=== PATIENT | male | born 1960 | race Hispanic/Latino ===

== ENCOUNTER 2016-11-15 09:40 | Outpatient (CLI) | payer MEDICARE ==
--- NOTE | 2016-11-16 07:41 | RAD ---
LEFT KNEE FOUR VIEWS 11/15/16 Moderate osteoarthritis is present. There is moderate medial joint space narrowing and some small os teophytes. There is the beginnings of a little sclerosis of the articular portions of the bones medi ally, though it is not great. No fracture or large joint effusion was seen. Patellofemoral osteophyt es are present. There may have been an old injury laterally. IMPRESSION: Moderate osteoarthritis. POS: HOME
== END 2016-11-15 09:41 | disposition home or self-care (01) ==
LOC: BURRAD 09:40
PROVIDERS: ATTEND Family Medicine
DX: M25.562 Pain in left knee (principal); M17.12 Unilateral primary osteoarthritis, left knee

== ENCOUNTER 2017-03-08 14:39 | Outpatient (CLI) | payer MEDICARE ==
--- NOTE | 2017-03-08 22:33 | RAD ---
CERVICAL SPINE TWO VIEWS 03/08/17 HISTORY: Flexion and extension lateral views were provided. One can see reasonably well down to the C6 level but not well below that. In extension, there is very slight 2 mm anterolisthesis of C3 on C4 and C4 on C5. With flexion, gonzáles criss, there is considerable anterior movement. C3-C4 shows a 6 mm offset and C4-C5 shows a 5 mm offse t with flexion. Degenerative changes are prominent in the spine. There is disc space narrowing and a large anterior osteophyte at C5-C6. IMPRESSION: Anterolisthesis of C3 on C4 with 4 mm of anterior motion between flexion and extension. Anterolisthe sis of C4 on C5 with 3 mm of anterolisthesis with flexion. POS: HOME
== END 2017-03-08 14:40 | disposition home or self-care (01) ==
LOC: BURRAD 14:39
PROVIDERS: ATTEND Neurological Surgery
DX: M54.2 Cervicalgia (principal); M43.12 Spondylolisthesis, cervical region
CPT/HCPCS: 72040

== ENCOUNTER 2017-07-04 08:31 | Outpatient (CLI) | payer MEDICARE ==
--- NOTE | 2017-07-04 19:37 | RAD ---
CERVICAL SPINE: Date: 07-04-17 AP, lateral, open mouth, and swimmer's views were provided. Comparison: 03-08-17 FINDINGS: In the interim the patient has had an anterior cervical fusion at the C3 through C5 levels with synth etic discs placed at C3-4 and C4-5. There is buddhism of alignment with no further off set of the vertebrae. Disc space narrowing is present at C5-6. No fracture or acute bony change was seen. The an terior soft tissues of the lower neck are slightly thickened compared to before. IMPRESSION: Status post anterior cervical fusion C3 through C5. POS: HOME
== END 2017-07-04 08:32 | disposition home or self-care (01) ==
LOC: BURRAD 08:31
PROVIDERS: ATTEND Neurological Surgery
DX: M54.12 Radiculopathy, cervical region (principal); Z98.1 Arthrodesis status
CPT/HCPCS: 72040